=== PATIENT | female | born 1975 | race African-American/Black ===

== ENCOUNTER 2020-03-13 15:23 | Emergency (ER) | payer MEDICARE ==
[~2020-03-13] VITALS: Ht 167.6 cm; Wt 69.5 kg
[~2020-03-13 15:23] MED LIST: EMPA25TA MT; GLIP10TA10 PO; LORA-250 PO; METF-416 PO; OLAN10TA3 MT; TRAZ-252 MT; ZIPR80CA2 MT
[2020-03-13] MEDS ORDERED: LORAZEPAM 1MG TABLET PO ONE (20:30)
[2020-03-14 00:45] LABS: BASOPHILS % 0.9 % (0.0-2.0); EOSINOPHILS % 1.2 % (0.0-5.0); HEMATOCRIT. 31.1 % (36.0-48.0); HEMOGLOBIN. 10.1 g/dL (12.0-16.0); LYMPHOCYTES % 23.8 % (20.0-50.0); MEAN CORPUSCULAR HEMOGLOBIN 28.8 pg (28.0-32.0); MEAN CORPUSCULAR VOLUME 88.1 fL (81.0-99.0); MEAN PLATELET VOLUME 7.6 fl (7.4-10.4); MONOCYTES % 6.4 % (2.0-8.0); NEUTROPHILS % 67.7 % (40.0-76.0); PLATELET 490 x1000/uL (130-400); RED BLOOD CELL COUNT 3.52 mill/uL (4.2-5.4); RED CELL DISTRIBUTION WIDTH 14.3 % (11.6-14.6)
[2020-03-14 00:50] LABS: CHLORIDE 108 mEq/L (98-107)
[2020-03-14 00:54] LABS: HCG SCREEN NEGATIVE
[2020-03-14] MEDS ORDERED: GLIP10TA10 MT (02:13)
[2020-03-14] MEDS ORDERED: METF-416 MT (02:13)
[2020-03-14 02:33] VITALS: BP 122/64
== END 2020-03-14 02:36 | disposition home or self-care (01) ==
LOC: ER 15:23
DX: G40.909 Epilepsy, unspecified, not intractable, without status epilepticus (principal); R55 Syncope and collapse; R00.0 Tachycardia, unspecified; F41.9 Anxiety disorder, unspecified; E11.9 Type 2 diabetes mellitus without complications; F32.9 Major depressive disorder, single episode, unspecified
CPT/HCPCS: 36415; 80048; 82962; 84484; 84703; 85025; 99283

== ENCOUNTER 2020-08-31 17:21 | Emergency (ER) | payer MEDICARE, OTHER ==
[~2020-08-31] VITALS: Ht 160 cm; Wt 75.0 kg
[~2020-08-31 17:21] MED LIST changes: +GLIP10TA10 MT; +METF-416 MT
[2020-08-31] MEDS ORDERED: LORAZEPAM 2MG/ML CPJ IV ONE ×2 (18:30→20:45)
[2020-08-31 19:13] LABS: BASOPHILS % 0.9 % (0.0-2.0); EOSINOPHILS % 0.6 % (0.0-5.0); HEMATOCRIT. 37.1 % (36.0-48.0); HEMOGLOBIN. 12.1 g/dL (12.0-16.0); LYMPHOCYTES % 27.3 % (20.0-50.0); MEAN CORPUSCULAR HEMOGLOBIN 26.8 pg (28.0-32.0); MEAN CORPUSCULAR VOLUME 82.3 fL (81.0-99.0); MEAN PLATELET VOLUME 9.5 fl (7.4-10.4); MONOCYTES % 4.6 % (2.0-8.0); NEUTROPHILS % 66.6 % (40.0-76.0); PLATELET 421 x1000/uL (130-400); RED BLOOD CELL COUNT 4.51 mill/uL (4.2-5.4)
[2020-08-31 19:19] LABS: CHLORIDE 107 mEq/L (98-107)
[2020-08-31 19:23] LABS: ETHANOL BLOOD < 10 mg/dL
[2020-08-31 19:39] LABS: *AMPHETAMINES SCREEN URINE NEGATIVE (NEGATIVE); *BARBITURATES SCREEN URINE NEGATIVE (NEGATIVE); *BENZODIAZEPINES SCREEN URINE NEGATIVE (NEGATIVE)
[2020-08-31 19:40] LABS: *COCAINE SCREEN URINE NEGATIVE (NEGATIVE); CANNABINOID URINE SCREEN NEGATIVE (NEGATIVE); METHADONE URINE SCREEN NEGATIVE (NEGATIVE); OPIATES URINE SCREEN NEGATIVE (NEGATIVE); PHENCYCLIDINE URINE SCREEN NEGATIVE (NEGATIVE)
[2020-09-01 03:15] VITALS: BP 107/76
[2020-09-01 11:16] LABS: UCG SCREEN NEGATIVE
== END 2020-09-01 03:23 | disposition home or self-care (01) ==
LOC: ER 17:21
DX: F41.9 Anxiety disorder, unspecified (principal); F13.239 Sedative, hypnotic or anxiolytic dependence with withdrawal, unspecified; T42.4X5A Adverse effect of benzodiazepines, initial encounter; Y92.9 Unspecified place or not applicable; E11.9 Type 2 diabetes mellitus without complications; R56.9 Unspecified convulsions; F31.9 Bipolar disorder, unspecified; Z88.8 Allergy status to other drugs, medicaments and biological substances; Z98.51 Tubal ligation status; Z98.82 Breast implant status; Z98.84 Bariatric surgery status; Z98.890 Other specified postprocedural states
CPT/HCPCS: 36415; 71045; 80048; 80305; 80320; 81025; 82962; 85025; 85379; 93005; 96374; 96376; 99285; J2060; G0480